=== PATIENT | female | born 1975 | race Caucasian/White ===

== ENCOUNTER 2017-05-04 07:39 | Emergency (ER) | payer MEDICAID ==
[2017-05-04 07:47] VITALS: TEMP 98.7
--- NOTE | 2017-05-04 07:59 | C.PDOC ---
History Of Present Illness Patient is a 41 y/o female presents to the ED for evaluation of right thumb pain since yesterday. Patient states she hit her right hand on a cabinet yesterday. Notes applying unknown ointment without any relief. Patient reports pain with movement of right thumb. Otherwise, denies any wrist pain, change in sensation, fever, chills, or any other associated symptoms at this time. Time Seen by Provider: 05/04/17 07:47 Chief Complaint (Nursing): Finger,Hand,&Wrist History Per: Patient History/Exam Limitations: no limitations Onset/Duration Of Symptoms: Days (1) Current Symptoms Are (Timing): Still Present Quality: "Pain" Exacerbating Factor(s): Movement Additional History Per: Patient Past Medical History Reviewed: Historical Data, Nursing Documentation, Vital Signs Vital Signs: Last Vital Signs Temp 98.7 F 05/04/17 07:42 Pulse 81 05/04/17 07:42 Resp 18 05/04/17 07:42 BP 96/64 L 05/04/17 07:42 Pulse Ox 98 05/04/17 08:38 - Medical History PMH: Hyperthyroidism Surgical History: Appendectomy Family History: States: No Known Family Hx - Social History Hx Alcohol Use: No Hx Substance Use: No - Immunization History Hx Tetanus Toxoid Vaccination: No Hx Influenza Vaccination: No Hx Pneumococcal Vaccination: No Review Of Systems Except As Marked, All Systems Reviewed And Found Negative. Constitutional: Negative for: Fever, Chills Musculoskeletal: Positive for: Hand Pain (right thumb pain) Skin: Negative for: Rash, Bruising Neurological: Negative for: Weakness, Numbness Physical Exam - Physical Exam Appears: Non-toxic, No Acute Distress Skin: Warm, Dry, No Ecchymosis Head: Atraumatic, Normacephalic Eye(s): bilateral: Normal Inspection Oral Mucosa: Moist Neck: Supple Extremity: No Normal ROM (decreased ROM of right thumb secondary to pain; FROM of right wrist), Tenderness (tenderness to radial aspect of right palm and base of thumb upon palpation; no tenderness to right wrist), Capillary Refill (<2 sec.), No Deformity, Swelling (mild swelling to radial aspect of right palm) Pulses: Left Radial: Normal, Right Radial: Normal Neurological/Psych: Oriented x3, Normal Speech, Normal Motor, Normal Sensation Gait: Steady ED Course And Treatment O2 Sat by Pulse Oximetry: 98 (on RA) Pulse Ox Interpretation: Normal - Other Rad Right hand x-ray X-Ray: Viewed By Me, Read By Radiologist Interpretation: FINDINGS: BONES: No acute fracture dislocation is identified throughout the right hand. Preliminary physician reports questionable fracture of the scaphoid bone. I do not see a definite fracture of the scaphoid bone at this time. If this is of clinical concern in particular the, then follow-up dedicated right wrist radiographs are advised. JOINTS: Normal. No osteoarthritic changes. SOFT TISSUES: Normal. OTHER FINDINGS: None. IMPRESSION: No definite fracture or dislocation identified throughout the right hand, including the right thumb. If there is clinical concern for wrist fracture and follow-up dedicated right wrist series is recommended. Progress Note: Right hand x-ray ordered and reviewed. Patient was given Motrin for pain. On re-evaluation, patient reports improvement of pain. No significant distress. Splint and maura bandage was applied. Patient is being discharged home and was advised to follow up with orthopedist if pain persists. Disposition Counseled Patient/Family Regarding: Studies Performed, Diagnosis, Need For Followup - Disposition Referrals: Girish Gonzalez MD [Staff Provider] - Disposition: HOME/ ROUTINE Disposition Time: 08:30 Condition: GOOD Additional Instructions: Xray reviewed showing no acute fracture or dislocation. Advise to rest, ice and elevate joint. Take pain medication as needed, ibuprofen 600mg every 8 hours with food to not upset stomach. If pain persists, follow up with orthopedic in one week. Instructions: Hand Sprain (ED) Forms: [employer] ([place]ic) - POA Present On Arrival: None - Clinical Impression Clinical Impression: Contusion of thumb - PA / GUEST SERVICES MANAGER / Resident Statement MD/DO has reviewed & agrees with the documentation as recorded. - Scribe Statement The provider has reviewed the documentation as recorded by the Maryana Ashraf All medical record entries made by the Allysoniblev were at my direction and personally dictated by me. I have reviewed the chart and agree that the record accurately reflects my personal performance of the history, physical exam, medical decision making, and the department course for this patient. I have also personally directed, reviewed, and agree with the discharge instructions and disposition.
--- NOTE | 2017-05-04 08:25 | RAD ---
PROCEDURE: Right Hand Radiographs. HISTORY: pain to right hand s.p injury, attn thumb COMPARISON: None. FINDINGS: BONES: No acute fracture dislocation is identified throughout the right hand. Preliminary physician reports questionable fracture of the scaphoid bone. I do not see a definite fracture of the scaphoid bone at this time. If this is of clinical concern in particular the, then follow-up dedicated right wrist radiographs are advised. JOINTS: Normal. No osteoarthritic changes. SOFT TISSUES: Normal. OTHER FINDINGS: None. IMPRESSION: No definite fracture or dislocation identified throughout the right hand, including the right thumb. If there is clinical concern for wrist fracture and follow-up dedicated right wrist series is recommended.
[2017-05-04 09:05] VITALS: BP 96/65; PULSE 75; RESP 16; O2SAT 100
== END 2017-05-04 09:05 | disposition home or self-care (01) ==
LOC: C.ER 07:39
DX: S60.011A Contusion of right thumb without damage to nail, initial encounter (principal); W22.8XXA Striking against or struck by other objects, initial encounter

== ENCOUNTER 2017-08-21 22:28 | Emergency (ER) | payer MEDICAID ==
--- NOTE | 2017-08-21 23:28 | C.PDOC ---
History Of Present Illness 42 year old female presents to the ER with a complaint of feeling bloated, tired , with an irregular menses. Patient believes she might be and is requesting a test. Denies fever, nausea, or vomiting. Time Seen by Provider: 08/21/17 22:59 Chief Complaint (Nursing): Medical Clearance History Per: Patient History/Exam Limitations: no limitations Onset/Duration Of Symptoms: Days Current Symptoms Are (Timing): Still Present Recent travel outside of the [place]: No Past Medical History Reviewed: Historical Data, Nursing Documentation, Vital Signs Vital Signs: Last Vital Signs Temp 98.6 F 08/21/17 23:49 Pulse 79 08/21/17 23:49 Resp 16 08/21/17 23:49 BP 105/77 08/21/17 23:49 Pulse Ox 100 08/22/17 01:56 - Medical History PMH: Hyperthyroidism Surgical History: Appendectomy Family History: States: Unknown Family Hx - Social History Hx Alcohol Use: No Hx Substance Use: No - Immunization History Hx Tetanus Toxoid Vaccination: No Hx Influenza Vaccination: No Hx Pneumococcal Vaccination: No Review Of Systems Constitutional: Negative for: Fever Gastrointestinal: Positive for: Other (Bloated). Negative for: Nausea, Vomiting Musculoskeletal: Positive for: Other (Body aches) Neurological: Positive for: Headache Physical Exam - Physical Exam Appears: Non-toxic, No Acute Distress Skin: Normal Color, Warm, Dry Head: Atraumatic, Normacephalic Eye(s): bilateral: Normal Inspection Oral Mucosa: Moist Chest: Symmetrical, No Tenderness Cardiovascular: Rhythm Regular Respiratory: Normal Breath Sounds, No Rales, No Rhonchi, No Wheezing Gastrointestinal/Abdominal: Soft, No Tenderness Neurological/Psych: Oriented x3, Normal Speech ED Course And Treatment O2 Sat by Pulse Oximetry: 100 (Room air) Pulse Ox Interpretation: Normal Progress Note: POC urine test showed positive . Patient instructed to follow up with OB for care. Disposition Counseled Patient/Family Regarding: Diagnosis, Need For Followup - Disposition Referrals: Gurpreet Bullard Personal Style Finder [Outside] Disposition: HOME/ ROUTINE Disposition Time: 23:26 Condition: STABLE Additional Instructions: PLEASE FOLLOW UP IN [facility] FOR CARE RETURN TO ER IF WORSE Instructions: (ED) Forms: [employer] ([place] Citizen) - Clinical Impression Clinical Impression: test positive - PA / PACKAGING MACHINE OPERATOR / Resident Statement MD/DO has reviewed & agrees with the documentation as recorded. - Scribe Statement The provider has reviewed the documentation as recorded by the Scriblev Mejia All medical record entries made by the Maryana were at my direction and personally dictated by me. I have reviewed the chart and agree that the record accurately reflects my personal performance of the history, physical exam, medical decision making, and the department course for this patient. I have also personally directed, reviewed, and agree with the discharge instructions and disposition.
[2017-08-21 23:49] VITALS: BP 105/77; PULSE 79; RESP 16; TEMP 98.6
[2017-08-22 01:46] VITALS: O2SAT 100
== END 2017-08-21 23:49 | disposition home or self-care (01) ==
LOC: C.ER 22:28
DX: Z32.01 Encounter for pregnancy test, result positive (principal)